=== PATIENT | male | born 1985 | race Caucasian/White ===

== ENCOUNTER 2021-09-30 09:05 | Emergency (ER) | payer SELFPAY ==
[2021-09-30] MEDS ORDERED: NA CHLORIDE 0.9% 1,000 ML ONE (09:32)
[2021-09-30 09:41] LABS: Hematocrit 42.4 % (39.6-49.0); MCV 89.1 fL (80-100); RBC Red Blood Cell Count 4.75 M/uL (4.33-5.43)
[2021-09-30 09:59] LABS: Albumin 3.4 g/dL (3.4-5.0); Bilirubin Total 0.5 mg/dL (0.2-1.0); Potassium 3.5 mmol/L (3.5-5.1); Protein, Total 6.6 g/dL (6.4-8.2); Troponin High Sensitivity 7.3 pg/mL (<58.9)
--- NOTE | 2021-09-30 10:36 | EDPHYS ---
Physician Documentation [facility] Name: Stephon Ramos II Age: 36 yrs Sex: Male : 1985 Arrival Date: 09/30/2021 Time: 09:06 Bed 15 Private MD: ED Physician Isaiah Loera HPI: 09/30 09:33 This 36 yrs old Male presents to ER via EMS with complaints of Drug Abuse, Possible en Overdose. 09:33 Onset: The symptoms/episode began/occurred acutely, suddenly, just prior to arrival. 36 en yo M with h/o heroin abuse presents to ED after OD from snorting heroin. EMS was called by family after the pt was found unresponsive with agonal breathing and "white powder". Upon EMS arrival, pt RR was 2/min. They started bagging pt and gave 0.2mg of Narcan with immediate response. Upon arrival, pt was mildly hypoxic in the low 90's, somnolent but following commands and placed on 2L NC. Denies CP, SOB, N/V, abdominal pain. Pt admitted to snorting heroin. Historical: - Allergies: 09:17 No Known Allergies; kr3 - PMHx: 09:17 None; kr3 - PSHx: 09:17 None; kr3 - Immunization history:: Client reports having NOT received the Covid vaccine. - Social history:: Smoking status: Patient denies any tobacco usage or history of. ROS: 09:33 Constitutional: Negative for fever, chills, and weight loss. en 09:33 Constitutional: Negative for body aches, chills, fatigue, fever. 09:33 Eyes: Negative for acute changes. 09:33 Cardiovascular: Negative for chest pain, edema, orthopnea, palpitations, paroxysmal nocturnal dyspnea. 09:33 Respiratory: 09:33 Abdomen/GI: Negative for nausea, vomiting, and diarrhea. 09:33 All other systems are negative. Exam: 09:50 Constitutional: This is a well developed, well nourished patient who is somnolent but en arouseable and cooperative Eyes: Pinpoint pupils, EOM 09:50 Eyes: Pupils: pinpoint. 09:50 ENT: Nose: is normal, Mouth: Lips: moist, Oral mucosa: pink and intact, moist, Posterior pharynx: Airway: patent. 09:50 Cardiovascular: Rate: normal, Rhythm: regular, Pulses: no pulse deficits are appreciated, Heart sounds: normal, no murmur, no rub, no gallop. 09:50 Respiratory: moderate respiratory distress is noted, Respirations: normal, Breath sounds: are clear throughout, no rales, rhonchi, no stridor, no wheezing, pt on 2L NC with pulse ox 92%, hypoxic 2/2 respiratory depression from OD, but currently with good respiratory drive and effort. 09:50 Abdomen/GI: Inspection: abdomen appears normal, Bowel sounds: normal, in all quadrants, Palpation: abdomen is soft and non-tender, in all quadrants. 09:50 Skin: Exam negative for rash, Appearance: 09:50 Neuro: Orientation: appropriate for stated age, no acute changes, to person, place \\T\\ time. Mentation: appropriate for stated age, no acute changes, somnolent but A\\T\\O x 3. 09:50 Psych: good insight poor judgement. Vital Signs: 09:10 BP 116 / 81; Pulse 97; Resp 14; Temp 98; Pulse Ox 89% ; Weight 88.45 kg; Height 6 ft. kr3 (182.88 cm); Pain 0/10; 09:12 Pulse Ox 94% on 2 lpm NC; ll1 10:10 BP 108 / 67; Pulse 74; Resp 15; Pulse Ox 94% on R/A; ll1 10:51 BP 105 / 75; Pulse 79; Resp 15; Pulse Ox 95% ; ll1 09:10 Body Mass Index 26.45 (88.45 kg, 182.88 cm) kr3 MDM: 09:50 Differential diagnosis: Heroin OD with respiratory depression. Data reviewed: vital en signs, nurses notes. ED course: Will continue to observe pt, check labs, give IVF and narcan PRN. 10:25 Data reviewed: EKG, EKG with NSR at 85bpm. RAD.. en 10:33 ED course: Labs reviewed and wnl. Pt remains HDS and protecting airway, A\\T\\O x3 with dad en at bedside. Pulse 0x 92-94% on room air without respiratory depression. Will d/c home. 10:35 Patient medically screened. en 09/30 09:18 Order name: CBC w/o diff; Complete Time: 10:25 en 09/30 09:18 Order name: CMP; Complete Time: 10:25 en 09/30 09:18 Order name: Troponin HS; Complete Time: 10:25 en 09/30 09:18 Order name: EKG; Complete Time: 09: en 09/30 09:18 Order name: Saline Lock; Complete Time: 09:51 en Administered Medications: 09:30 Drug: NS 0.9% 1000 ml Route: IV; Rate: 1 bolus; Site: left antecubital; kr3 10:56 Follow up: Response: No adverse reaction; IV Status: Completed infusion; IV Intake: ll1 1000ml Disposition: 12:40 Co-signature as Attending Physician, Isaiah Loera MD I agree with the assessment and kdr plan of care. Disposition Summary: 09/30/21 10:35 Discharge Ordered Location: Home en Problem: new en Symptoms: have improved en Condition: Stable en Diagnosis - Heroin overdose en Followup: en - With: Grey Sol MD - When: As needed - Reason: Discharge Instructions: - Discharge Summary Sheet en - Opioid Overdose en Forms: - Medication Reconciliation Form en - Thank You Letter en - Antibiotic Education en - Prescription Opioid Use en Signatures: Dispatcher [employer] EDMS Isaiah Loera MD MD kdr Newkirk, Elizabeth, PA PA en Ryanne Caldwell RN RN kr3 Tiffany Stone RN ll1 Corrections: (The following items were deleted from the chart) 09:37 09:33 36 yo M with h/o heroin abuse presents to ED after OD from snorting heroin. EMS en was called by family after the pt was found unresponsive with agonal breathing and "white powder". Upon EMS arrival, pt RR was 2/min. They started bagging pt and gave 0.2mg of Narcan with immediate response. Upon arrival, pt was mildly hypoxic in the low 90's, somnolent but following commands and placed on 2L NC. Denies CP, SOB, N/V, abdominal pain. en
--- NOTE | 2021-09-30 10:36 | ER ---
Nurse's Notes [facility] Name: Stephon Ramos II Age: 36 yrs Sex: Male : 1985 Arrival Date: 09/30/2021 Time: 09:06 Bed 15 Private MD: Diagnosis: Heroin overdose Presentation: 09/30 09:10 Chief complaint: Patient states: sniffed a white powder, found by family, no complaints kr3 of pain or fever EMS states: found unresponsive at home, family called EMS, breathing 2 times/min upon EMS arrival, bagged with oxygen, Narcan 2 mg admin and patient woke up, vital signs stable other than HR 120's. Coronavirus screen: Vaccine status: Patient reports being unvaccinated. Client denies travel out of the [place] in the last 14 days. At this time, the client does not indicate any symptoms associated with coronavirus-19. Ebola Screen: Patient denies travel to an Ebola-affected area in the 21 days before illness onset. Initial Sepsis Screen: Does the patient meet any 2 criteria? HR > 90 bpm. No. Patient's initial sepsis screen is negative. Does the patient have a suspected source of infection? No. Patient's initial sepsis screen is negative. Risk Assessment: Do you want to hurt yourself or someone else? Patient reports no desire to harm self or others. Onset of symptoms was September 30, 2021. 09:10 Method Of Arrival: EMS kr3 09:10 Acuity: DAWN 3 kr3 Triage Assessment: 09:18 General: Appears uncomfortable, Behavior is cooperative, appropriate for age. General: kr3 overdose on heroin. Pain: Denies pain. Neuro: Level of Consciousness is awake, Oriented to person, place, time, situation, Appropriate for age Speech is normal, Facial symmetry appears normal. Historical: - Allergies: 09:17 No Known Allergies; kr3 - PMHx: 09:17 None; kr3 - PSHx: 09:17 None; kr3 - Immunization history:: Client reports having NOT received the Covid vaccine. - Social history:: Smoking status: Patient denies any tobacco usage or history of. Screenin:54 Abuse screen: Denies threats or abuse. Nutritional screening: No deficits noted. ll1 Tuberculosis screening: No symptoms or risk factors identified. Fall Risk IV access (20 points). Gait- Impaired (20 pts.). Total Hdez Fall Scale indicates Low Risk Score (25-44 pts). Fall prevention measures have been instituted. Side Rails Up X 2 Placed close to Nursing Station Frequent Obs/Assesments occuring Family Present and informed to notify staff if they need to leave bedside As available Patient and Family Educated on Fall Prevention Program and strategies. Assessment: 10:10 Reassessment: No changes from previously documented assessment. Patient and/or family ll1 updated on plan of care and expected duration. Pain level reassessed. Patient is alert, oriented x 3, equal unlabored respirations, skin warm/dry/pink. 10:54 Reassessment: No changes from previously documented assessment. Patient and/or family ll1 updated on plan of care and expected duration. Pain level reassessed. Patient is alert, oriented x 3, equal unlabored respirations, skin warm/dry/pink. Overdose: 10:54 [place] Suicide Severity Screening: "In the past month, have you wished you were ll1 or wished you could go to sleep and not wake up?" Patient responds "no." "In the past month, have you actually had any thoughts of killing yourself?" Patient responds "no." "In your lifetime, have you ever done anything, started to do anything, or prepared to do anything to end your life?" Patient responds "no.". 10:54 [place] Suicide Severity Screening: "In the past month, have you wished you were ll1 or wished you could go to sleep and not wake up?" Patient responds "no." "In the past month, have you actually had any thoughts of killing yourself?" Patient responds "no.". 10:54 [place] Suicide Severity Screening: "In the past month, have you wished you were ll1 or wished you could go to sleep and not wake up?" Patient responds "no." "In the past month, have you actually had any thoughts of killing yourself?" Patient responds "no.". Vital Signs: 09:10 BP 116 / 81; Pulse 97; Resp 14; Temp 98; Pulse Ox 89% ; Weight 88.45 kg; Height 6 ft. kr3 (182.88 cm); Pain 0/10; 09:12 Pulse Ox 94% on 2 lpm NC; ll1 10:10 BP 108 / 67; Pulse 74; Resp 15; Pulse Ox 94% on R/A; ll1 10:51 BP 105 / 75; Pulse 79; Resp 15; Pulse Ox 95% ; ll1 09:10 Body Mass Index 26.45 (88.45 kg, 182.88 cm) kr3 ED Course: 09:06 Patient arrived in ED. ss 09:06 Sameera Faye PA is PHCP. en 09:07 Isaiah Loera MD is Attending Physician. en 09:10 Ryanne Caldwell, YOJANA is Primary Nurse. kr3 09:10 Maintain EMS IV. Dressing intact. Good blood return noted. Site clean \\T\\ dry. Gauge \\T\\ ll 1 site: 18 L AC. 09:17 Triage completed. kr3 09:17 Arm band placed on Patient placed in an exam room, on a stretcher, on oxygen, on kr3 surveillance system monitor, on pulse oximetry. 10:34 Grey Sol MD is Referral Physician. en 10:53 No provider procedures requiring assistance completed. IV discontinued, intact, ll1 bleeding controlled, No redness/swelling at site. Pressure dressing applied. 10:56 Patient has correct armband on for positive identification. Bed in low position. Call ll1 light in reach. Client placed on continuous cardiac and pulse oximetry monitoring. NIBP monitoring applied. Administered Medications: 09:30 Drug: NS 0.9% 1000 ml Route: IV; Rate: 1 bolus; Site: left antecubital; kr3 10:56 Follow up: Response: No adverse reaction; IV Status: Completed infusion; IV Intake: ll1 1000ml Medication: 10:54 VIS not applicable for this client. ll1 Intake: 10:56 IV: 1000ml; Total: 1000ml. ll1 Outcome: 10:35 Discharge ordered by MD. en 10:55 Discharged to home ambulatory. ll1 10:55 Condition: stable 10:55 Instructed on 10:55 Discharge instructions given to patient, Instructed on discharge instructions, follow up and referral plans. Demonstrated understanding of instructions, follow-up care. 10:57 Patient left the ED. ll1 Signatures: Jesica Raya RN RN ss Lewis, Lynsay, RN RN ll1 Sameera Faye PA PA en Ryanne Caldwell, RN RN kr3
[2021-09-30 11:06] VITALS: TEMP 98
[2021-09-30 11:12] VITALS: BP 105/75; O2SAT 95
--- NOTE | 2021-10-02 08:00 | EKG ---
Test Date: 2021-09-30 Test Time: 09:29:55 Android Ui Developer: PERRY MEASUREMENT RESULTS: Intervals: Rate: 85 NM: 130 QRSD: 96 QT: 358 QTc: 426 Kelly: P: 48 NM: 130 QRS: 94 T: 18 INTERPRETIVE STATEMENTS: Normal sinus rhythm Rightward axis Borderline ECG Compared to ECG 08/01/2010 07:41:20 Right-axis deviation now present ST (T wave) deviation no longer present Electronically Signed On 10-02-21 07:55:51 CDT by Yoandy Mcwilliams
== END 2021-09-30 10:57 | disposition home or self-care (01) ==
LOC: ER 09:05
DX: T40.1X1A Poisoning by heroin, accidental (unintentional), initial encounter (principal)
CPT/HCPCS: 36415; 80053; 84484; 85027; 93005; 96360; 99284; J7030